=== PATIENT | female | born 1945 | race Caucasian/White ===

== ENCOUNTER 2016-07-20 14:45 | Day surgery (SDC) | payer MEDICAID, MEDICARE ==
--- NOTE | 2016-07-19 23:25 | PREOPHP ---
DATE OF ADMISSION: 07/20/2016 SURGICAL HISTORY AND PHYSICAL HISTORY OF PRESENT ILLNESS: Patient is a 71-year-old 3, para 3, menopausal since the age of 43 and has never been on hormone replacement therapy and has had postmenopausal bleeding. The malka ent had first episode of bleeding in December. She had an endometrial biopsy in the office which rel eased a lot of fluid and she had a polyp and benign endometrial tissue. She was fine until now. Pre viously she was advised that if the bleeding recurred, I would recommend a D and C. Of note, the james stevens has been diagnosed with breast cancer and is scheduled to have a lumpectomy at the end of July on the and her preoperative has already been done for that procedure, which will cover her for this procedure as well. PAST MEDICAL HISTORY: The patient has hypertension. She has been on medications for about 5 years. PAST SURGICAL HISTORY: Left breast lumpectomy which was benign, right hand surgery after an acciden t and toe surgery to remove a callus. PAST OBSTETRICAL HISTORY: She has had 3 normal spontaneous vaginal deliveries. ALLERGIES: NO KNOWN DRUG ALLERGY. MEDICATIONS: 1. Spironolactone 50 mg. 2. Furosemide 40 mg daily. SOCIAL HISTORY: She is a former smoker, age 16 to 52, quit for 18 years now. No drugs, occasional b eer. PHYSICAL EXAMINATION: GENERAL: The patient is 5 foot 2, 194 pounds. VITAL SIGNS: Blood pressure is normal on her medications. HEART: Regular rate and rhythm. LUNGS: Clear to auscultation. ABDOMEN: Soft. PELVIC: Uterus is slightly enlarged. Adnexa nontender, no edema. On ultrasound uterus is slightly enlarged with 4 x 3.5 cm fibroid in the posterior lower uterine seg ment. Lining is 1.9 cm with fluid pockets. Ovaries were not specifically seen, but there were no ad nexal masses and there was no cul-de-sac fluid. ASSESSMENT: Postmenopausal bleeding. PLAN: Dilatation and curettage, trying to do it prior to her breast lumpectomy. [facility] Lab work and results from that should be available p rior to surgery. Dr. Parker [phone]. Dictated By: ROSEANN APONTE/KARLO Conf#: [id number] [facility]#: [id number]
[~2016-07-20] VITALS: Ht 158.8 cm; Wt 91.0 kg
[2016-07-20] VITALS (8 sets, daily range): BP systolic 140–152; BP diastolic 73–81; PULSE 72–101; RESP 16–19; Ht 158.8 cm; Wt 91.0 kg
[~2016-07-20 14:45] MED LIST: ASPI81TA3 PO; BACTDS PO; BENECAR PO; CEPH-443 PO; CRES10 PO; LACTATED RINGER'S 1,000 ML IV SCH
[2016-07-20] MEDS ORDERED: FURO40TA4 PO (15:59)
[2016-07-20] MEDS ORDERED: SPIR25TA PO (15:59)
[2016-07-20] MEDS ORDERED: AMLO5TAB4 PO (15:59)
[2016-07-20] MEDS ORDERED: MIDAZOLAM 1 MG/ML 2 ML INJ ONE (17:19)
[2016-07-20] MEDS ORDERED: PROPOFOL 20 ML ONE (17:19)
[2016-07-20] MEDS ORDERED: FENTAnyl 50 MCG/ML VIAL ONE (17:19)
--- NOTE | 2016-07-20 18:19 | PD.PPDC ---
[facility] Discharge Instruction Condition Patient Condition: Good Activity/Restrictions Activity: Normal Activity May Shower Restrictions: Nothing in the Vagina Follow-up Follow-up with Physician: 5, Day/Days Return to clinic for [facility] [employer] Instructions: Fever greater than [address] [place] Worsening abdominal pain Excessive Vaginal Bleeding ROSEANN GARCIA MD July 20, 2016 18:19
[2016-07-20] MEDS ORDERED: HYDROmorphONE (0.2 MG/ML) 10ML SYG IV PRN ×3 (18:30)
[2016-07-20] MEDS ORDERED: METOCLOPRAMIDE 10 MG INJ IV PRN (18:30)
[2016-07-20] MEDS ORDERED: ONDANSETRON 4 MG INJ IV PRN (18:30)
[2016-07-20] MEDS ORDERED: HYDROCODONE/APAP (10/325) TAB PO ONE (19:00)
--- NOTE | 2016-07-20 20:00 | OPR ---
DATE OF OPERATION: 07/20/2016 PREOPERATIVE DIAGNOSIS: Postmenopausal bleeding. POSTOPERATIVE DIAGNOSIS: Postmenopausal bleeding. OPERATION PERFORMED: Dilatation with fractional curettage. SURGEON: Siddharth Gonzales MD ANESTHESIA: [facility] with general anesthesia. ESTIMATED BLOOD LOSS: 10 mL. PATHOLOGY: Uterine curettings and endocervical curettings sent separately to pathology. PROCEDURE FOLLOWS: The patient was brought to the operating room, placed on the operating room t able, and was put to sleep, not intubated though. Her legs were then brought up into the laparoscop y stirrups, and she was prepped and draped in the usual sterile fashion. Her bladder was emptied wi th a red Villafana catheter. A weighted speculum was placed into the vaginal vault. The cervix was grasped with a tenaculum. The endocervical curettings were obtained first placing a minimal amount of tissue on a Telfa pad and handing it off the field. The cervix was then dilated very easily. Ut erus was sounded to 11 cm. Used a smaller curet and going up to the fundal part, released some old blood pocket which flowed out. Scraped all of the lateral side rao as well as the fundus. This w as a very easy procedure. A small amount of soft polypoid tissue was removed. The ra[place] of the [place] were otherwise firm. Collected all of the tissue and blood that was removed onto a Telfa pad th at was also handed off the field to be sent to pathology separately. When the procedure was termina erlinda, was not getting any more tissue out, there was no active bleeding from the uterus. The tenacul um was removed. There was no bleeding. Cleaned the vagina and removed the weighted speculum. The patient's perineum was cleaned and the drapings were taken down and the patient was then awakened fr om general anesthesia having tolerated the procedure well. Dictated By: SIDDHARTH APONTE/KARLO Conf#: [id number] DID#: [id number]
== END 2016-07-20 19:26 | disposition home or self-care (01) ==
LOC: SDS 14:45
PROVIDERS: ATTEND Obstetrics & Gynecology
DX: N72 Inflammatory disease of cervix uteri (principal); N85.8 Other specified noninflammatory disorders of uterus; N95.0 Postmenopausal bleeding; I10 Essential (primary) hypertension; Z87.891 Personal history of nicotine dependence; C50.919 Malignant neoplasm of unspecified site of unspecified female breast
CPT/HCPCS: 58120; 88305; J2250; J3010